=== PATIENT | female | born 1970 | race Caucasian/White ===

== ENCOUNTER 2022-08-15 09:50 | Emergency (ER) | payer MEDICARE, MEDICAID ==
[2022-08-15 11:04] LABS: CORONAVIRUS COVID-19 NAA NEGATIVE (NEGATIVE)
[2022-08-15] MEDS ORDERED: Sodium Chloride 0.9% 10 ML Syringe FLUSH PRN (11:06)
[2022-08-15] MEDS ORDERED: diphenhydrAMINE 50 MG/ML SDV IVPUSH ONE (11:16)
[2022-08-15] MEDS ORDERED: Sodium Chloride 0.9% 1,000 ML IV STA (11:16)
[2022-08-15] MEDS ORDERED: HYDROmorphone 0.5 MG/0.5 ML Syringe IVPUSH ONE (11:16)
[2022-08-15] MEDS ORDERED: Metoclopramide 10 MG/2 ML SDV IVPUSH ONE (11:16)
[2022-08-15] MEDS ORDERED: Ketorolac 30 MG/ML SDV IVPUSH ONE (11:16)
== END 2022-08-15 13:28 | disposition home or self-care (01) ==
LOC: JD.ED 09:50
DX: R51.9 Headache, unspecified (principal); Z20.822 Contact with and (suspected) exposure to COVID-19
CPT/HCPCS: 0241U; 36415; 70450; 80053; 81001; 85025; 86140; 96361; 96374; 96375; 99284; J1170; J1200; J1885; J2765; J3490; J7030

== ENCOUNTER 2024-05-20 12:09 | Day surgery (SDC) | payer MEDICARE, MEDICAID ==
[2024-05-20] MEDS: Polymyxin B/Trimethoprim 10 ML Bottle EYERT SCH (12:43)
[2024-05-20] MEDS: Brimonidine 0.2% Ophth Soln 5 ML Bottle EYERT SCH (12:47)
[2024-05-20] MEDS: Phenylephrine 2.5% Ophth Soln 2 ML Bot EYERT SCH (12:50)
[2024-05-20] MEDS: Tropicamide 1% Ophth Soln 3 ML Bottle EYERT SCH (12:53)
[2024-05-20] MEDS: Tetracaine HCl/PF 0.5% 4 ML Bottle EYEBOTH SCH (13:43)
[2024-05-20] MEDS: Lidocaine 1% PF 2 ML SDV INJECT SCH (14:12)
[2024-05-20] MEDS: Cefuroxime 10 MG/ML SYRINGE EYERT SCH (14:26)
[2024-05-20] MEDS: Pilocarpine 4% Ophth Soln 15 ML Bot EYERT SCH (14:27)
== END 2024-05-20 14:34 ==
LOC: JD.SDS 12:09
PROVIDERS: ATTEND Ophthalmology
DX: H25.813 Combined forms of age-related cataract, bilateral (principal); H40.013 Open angle with borderline findings, low risk, bilateral; H43.393 Other vitreous opacities, bilateral; H44.23 Degenerative myopia, bilateral; H16.103 Unspecified superficial keratitis, bilateral; H16.223 Keratoconjunctivitis sicca, not specified as Sjogren's, bilateral; Z79.899 Other long term (current) drug therapy
CPT/HCPCS: 66984; A9270; J0697; J3490

== ENCOUNTER 2024-10-13 10:24 | Day surgery (SDC) | payer MEDICARE, MEDICAID ==
[~2024-10-13 10:24] MED LIST: Morphine 8 MG, EPINEPHrine 0.3 MG, Cefuroxime 750 MG, Ketorolac 30 MG, Sodium Chloride ... PRN; Sodium Chloride 0.9% 10 ML Syringe FLUSH PRN; Sodium Chloride 0.9% 10 ML Syringe FLUSH SCH; oxyCODONE 5 MG Tab PO PRN
[2024-10-13] MEDS: Lactated Ringers 1,000 ML IV SCH (10:45)
[2024-10-13] MEDS ORDERED: Midazolam 1 MG/ML 2 ML SDV ONE (11:13)
[2024-10-13] MEDS ORDERED: Propofol 200 MG/20 ML SDV ONE ×4 (11:13→13:31)
[2024-10-13] MEDS ORDERED: Ropivacaine 0.5% 5 MG/ML 30 ML SDV ONE (11:14)
[2024-10-13] MEDS: VANCOmycin 1.25 GM/250 ML 1.25 GM in Premix Bag 1 BAG IV ONE (11:40)
[2024-10-13] MEDS: Acetaminophen 325 MG Tab PO SCH (11:52)
[2024-10-13] MEDS: oxyCODONE ER 10 MG TAB.ER PO SCH (11:53)
[2024-10-13] MEDS: Pregabalin 25 MG Cap PO SCH (11:53)
[2024-10-13] MEDS ORDERED: Ondansetron 4 MG/2 ML SDV IVPUSH PRN (12:15)
[2024-10-13] MEDS ORDERED: fentaNYL 100 MCG/2 ML SDV IVPUSH PRN (12:15)
[2024-10-13] MEDS ORDERED: HYDROmorphone 0.5 MG/0.5 ML Syringe IVPUSH PRN (12:15)
[2024-10-13] MEDS ORDERED: Lidocaine 1% 5 ML VIAL ONE (12:24)
[2024-10-13] MEDS ORDERED: Ondansetron 4 MG/2 ML SDV ONE (12:44)
[2024-10-13] MEDS ORDERED: ePHEDrine 50 MG/ML SDV ONE (12:47)
[2024-10-13] MEDS ORDERED: Triamcinolone Acetonide 40 MG/ML 1 ML SDV ONE (13:48)
[2024-10-13] MEDS: Morphine 8 MG, EPINEPHrine 0.3 MG, Cefuroxime 750 MG, Ketorolac 30 MG, Sodium Chloride ... PRN (15:30)
[2024-10-13] MEDS: Bupivacaine 0.25% 10 ML SDV ONE (15:31)
[2024-10-13] MEDS: Dexamethasone 4 MG/ML 5 ML MDV ONE (15:33)
[2024-10-13] MEDS: Tranexamic Acid 1,000 MG/10 ML Vial ONE (15:34)
[2024-10-13] MEDS: Vancomycin 1 GM SDV ONE (15:35)
== END 2024-10-13 17:55 | disposition home or self-care (01) ==
LOC: JD.SDS 10:24
PROVIDERS: ATTEND Orthopaedic Surgery
DX: M17.11 Unilateral primary osteoarthritis, right knee (principal); E78.00 Pure hypercholesterolemia, unspecified; E03.9 Hypothyroidism, unspecified; F41.9 Anxiety disorder, unspecified; K22.70 Barrett's esophagus without dysplasia; Z79.899 Other long term (current) drug therapy
CPT/HCPCS: 0055T; 27447; 73560; 97110; 97116; 97161; 97530; A9270; J0171; J0665; J0697; J1100; J1885; J2250; J2272; J2405; J2704; J2795; J3301; J3372; J7120; J3490